=== PATIENT | male | born 1940 | race Caucasian/White ===

== ENCOUNTER 2017-12-10 12:05 | Inpatient (IN) | payer MEDICARE, OTHER ==
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
[2017-12-10] MEDS ORDERED: Fentanyl 100 MCG/2 ML VIAL ONE (13:02)
[2017-12-10 13:21] LABS: ALT (SGPT) 52 U/L (8-55); AST (SGOT) 53 U/L (5-34); Albumin 4.2 g/dL (3.4-4.8); Alkaline Phosphatase 68 U/L (40-150); Anion Gap 15 mmol/L (10-20); BUN (Urea Nitrogen) 18 mg/dL (8.4-25.7); Bilirubin, Total 0.4 mg/dL (0.2-1.2); Calc. Creatinine Clearance 0 mL/min (70-130); Calcium 9.7 mg/dL (7.8-10.44); Carbon Dioxide 23 mmol/L (23-31); Chloride 104 mmol/L (98-107); Estimated GFR-MDRD 86; Globulin 2.8 g/dL (2.4-3.5); Glucose 107 mg/dL (83-110); Potassium 3.9 mmol/L (3.5-5.1); Sodium 138 mmol/L (136-145)
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
[2017-12-10 13:26] LABS: CKMB 5.6 ng/mL (0-6.6); Troponin I 0.034 ng/mL (< 0.028)
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
[2017-12-10 13:58] LABS: #Basophils 0.2 thou/uL (0.0-0.2); #Eosinphils 0.2 thou/uL (0.0-0.7); #Lymphocytes 4.5 thou/uL (1.20-3.40); #Monocytes 1.1 thou/uL (0.11-0.59); #Neutrophils 8.9 thou/uL (1.40-6.50); %Basophils 1.1 % (0.0-1.0); %Eosinophils 1.5 % (0.0-10.0); %Lymphocytes 30.5 % (21.0-51.0); %Monocytes 7.3 % (0.0-10.0); %Neutrophils 59.7 % (42.0-75.0); Hemoglobin 13.7 g/dL (14.0-18.0); Mean Corpuscular HGB CONC 32.2 g/dL (32.0-36.0); Mean Corpuscular Hemoglobin 32.2 pg (27.0-31.0); Mean Platelet Volume 5.9 fL (7.4-10.4); Platelet Count 348 thou/uL (130-400); RBC Distribution Width 12.6 % (11.5-14.5); Red Blood Cell (RBC) Count 4.26 mill/uL (4.70-6.10); White Blood Cell (WBC) Count 14.8 thou/uL (4.8-10.8)
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
[2017-12-10] MEDS ORDERED: Adacel (T-DAP) 0.5 ML VIAL ONE (14:58)
[2017-12-10] MEDS ORDERED: Dextrose 5% in Water 1,000 ML IV PRN (15:25)
[2017-12-10] MEDS ORDERED: Cyclobenzaprine 10 MG TAB PO PRN (15:25)
[2017-12-10] MEDS ORDERED: Ondansetron HCl/PF 4 MG/2 ML Vial IVP PRN (15:25)
[2017-12-10] MEDS ORDERED: traMADol HCl 50 MG TAB PO PRN (15:25)
[2017-12-10] MEDS ORDERED: hydrALAZINE 20 MG/ML VIAL SLOW IVP PRN (15:25)
[2017-12-10] MEDS ORDERED: Dextrose 50% Abboject 50 ML SYRINGE SLOW IVP PRN (15:25)
[2017-12-10] MEDS ORDERED: Ondansetron ODT 4 MG TAB PO PRN (15:25)
[2017-12-10 15:37] VITALS: BMI 25.8
[2017-12-10] MEDS ORDERED: Ibuprofen 600 MG TAB PO SCH (15:45)
[2017-12-10] MEDS: traMADol HCl 50 MG TAB PO PRN (15:54)
[2017-12-10] MEDS: Acetaminophen 325 MG TAB PO SCH ×2 (15:55→20:36)
[2017-12-10] MEDS ORDERED: ISOVUE-370 76%-LOCM 1 ML ONE (16:54)
[2017-12-10] MEDS: PROVENTIL INHALER 6.7 G (200 INHALATIONS) INH SCH (20:04)
[2017-12-10] MEDS: Amoxicillin/Potassium Clav 875 MG TAB PO SCH (20:35)
[2017-12-10] MEDS: Famotidine 20 MG TAB PO SCH (20:35)
[2017-12-10] MEDS: Ibuprofen 600 MG TAB PO SCH (20:36)
[2017-12-10] MEDS ORDERED: Atorvastatin Calcium 40 MG TAB PO SCH (21:00)
[2017-12-10] MEDS ORDERED: Zolpidem Tartrate 5 MG TAB PO SCH (21:00)
[2017-12-10] MEDS ORDERED: Montelukast Sodium 10 mg Tablet PO PRN (21:00)
[2017-12-10] MEDS ORDERED: guaiFENesin ER 600 MG TAB PO SCH (21:30)
[2017-12-10] MEDS: Tamsulosin HCl 0.4 MG CAP PO SCH (21:32)
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
[2017-12-11] MEDS: Acetaminophen 325 MG TAB PO SCH ×5 (01:51→13:12)
[2017-12-11 04:45] LABS: #Basophils 0.1 thou/uL (0.0-0.2); #Lymphocytes 2.5 thou/uL (1.20-3.40); #Neutrophils 8.8 thou/uL (1.40-6.50); %Basophils 0.6 % (0.0-1.0); %Eosinophils 0.4 % (0.0-10.0); %Lymphocytes 19.9 % (21.0-51.0); %Monocytes 8.1 % (0.0-10.0); %Neutrophils 70.9 % (42.0-75.0); Hemoglobin 12.6 g/dL (14.0-18.0); Mean Corpuscular HGB CONC 33.6 g/dL (32.0-36.0); Mean Corpuscular Hemoglobin 33.6 pg (27.0-31.0); Mean Corpuscular Volume 99.9 fl (80.0-94.0); Mean Platelet Volume 5.9 fL (7.4-10.4); Platelet Count 313 thou/uL (130-400); RBC Distribution Width 12.6 % (11.5-14.5); Red Blood Cell (RBC) Count 3.76 mill/uL (4.70-6.10); White Blood Cell (WBC) Count 12.4 thou/uL (4.8-10.8)
[2017-12-11 04:57] LABS: Anion Gap 13 mmol/L (10-20); BUN (Urea Nitrogen) 20 mg/dL (8.4-25.7); Calc. Creatinine Clearance 84 mL/min (70-130); Carbon Dioxide 25 mmol/L (23-31); Chloride 100 mmol/L (98-107); Estimated GFR-MDRD 88; Glucose 112 mg/dL (83-110); Phosphorus 3.3 mg/dL (2.3-4.7); Potassium 3.8 mmol/L (3.5-5.1); Sodium 134 mmol/L (136-145)
[2017-12-11] MEDS: Ibuprofen 600 MG TAB PO SCH ×2 (05:56→13:12)
[2017-12-11] MEDS: PROVENTIL INHALER 6.7 G (200 INHALATIONS) INH SCH ×2 (07:41→10:41)
[2017-12-11] MEDS: Amoxicillin/Potassium Clav 875 MG TAB PO SCH (08:52)
[2017-12-11] MEDS: Famotidine 20 MG TAB PO SCH (08:53)
[2017-12-11] MEDS: Tamsulosin HCl 0.4 MG CAP PO SCH (08:53)
[2017-12-11] MEDS: traMADol HCl 50 MG TAB PO PRN (08:56)
[2017-12-11] MEDS ORDERED: Atorvastatin Calcium 40 MG TAB PO SCH (09:00)
[2017-12-11] MEDS ORDERED: Tamsulosin HCl 0.4 MG CAP PO SCH (09:00)
[2017-12-11] MEDS ORDERED: guaiFENesin ER 600 MG TAB PO SCH (09:00)
[2017-12-11] MEDS ORDERED: Finasteride 5 MG TAB PO SCH (09:00)
[2017-12-11 09:22] VITALS: BP 127/84; TEMP 98
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
--- NOTE | 2017-12-24 13:42 | EKG ---
Test Reason : Blood Pressure : / mmHG Vent. Rate : 091 BPM Atrial Rate : 091 BPM P-R Int : 176 ms QRS Dur : 086 ms QT Int : 366 ms P-R-T Axes : 060 -31 044 degrees QTc Int : 450 ms Normal sinus rhythm Left axis deviation Abnormal ECG Confirmed by CARLOTTA MENDIOLA ([id number]), fashion editor PARADISE CALDWELL ([id number]) on 12/24/2017 1:41:55 PM Referred By: Confirmed By:CARLOTTA MENDIOLA
== END 2017-12-11 13:45 | disposition home or self-care (01) | DRG 563 ==
LOC: ERS 12:05 → SURG B 15:16
PROVIDERS: ADMIT Specialist; ATTEND Specialist
DX: S42.002A Fracture of unspecified part of left clavicle, initial encounter for closed fracture (principal); S32.059A Unspecified fracture of fifth lumbar vertebra, initial encounter for closed fracture; S22.20XA Unspecified fracture of sternum, initial encounter for closed fracture; I44.1 Atrioventricular block, second degree; Z95.0 Presence of cardiac pacemaker; I10 Essential (primary) hypertension; Z85.46 Personal history of malignant neoplasm of prostate; Z85.72 Personal history of non-Hodgkin lymphomas; S30.0XXA Contusion of lower back and pelvis, initial encounter; S20.312A Abrasion of left front wall of thorax, initial encounter; E78.5 Hyperlipidemia, unspecified; R29.890 Loss of height; S00.81XA Abrasion of other part of head, initial encounter; S30.811A Abrasion of abdominal wall, initial encounter; S70.212A Abrasion, left hip, initial encounter; S80.812A Abrasion, left lower leg, initial encounter
CPT/HCPCS: 36415; 70450; 71045; 71260; 72125; 74177; 80048; 80053; 82553; 83735; 83880; 84100; 84484; 85025; 90471; 90715; 93005; 96374; G0390; G8978-GP-CI; G8979-GP-CI; G8980-GP-CI; J3010